=== PATIENT | female | born 1930 | race Caucasian/White ===

== ENCOUNTER → 2016-10-10 | Outpatient (CLI) | payer MEDICARE, MEDICAID ==
[~2016-10-10] MED LIST: ACETAMINOPHEN500 M3 PO; ADULT LOW DOSE81 MG PO; ALPRAZOLAM0.25 M2 PO; ASPIRIN CHILDRE81 MG PO; ATENOLOL25 M1 PO; B-121000 MC1 PO; BENADRYL 25MG C25 MG PO; DAILY MULTIPLE1 T11 PO; DONEPEZIL 10MG10 MG PO; DONEPEZIL HCL10 MG PO; DYAZIDE CAP (M1 EACH PO; FENOFIBRATE MI134 MG PO; FENOFIBRATE160 MG PO; FISH OIL1000 MG PO; GLUCOVANCE 2.51 TAB PO; GLYCERIN SUPPOS1 SU1 RC; HCTZ/TRIAMTEREN1 CAP PO; HYDROXYZINE HCL25 M1 PO; JANUVIA25 MG PO; LORATADINE 10MG10 M1 PO; LOVENOX 3030 MG/0.1 IJ; METFORMIN500 MG PO; MINOCYCLINE 10100 MG PO; MIRALAX(PO17 GM/1 PA PO; MIRTAZAPINE7.5 MG PO; MULTI-VITAMIN1 EACH PO; NATURAL VITAM1000 MG PO; RISPERIDONE0.5 M2 PO; ROBAFEN100 MG/5 M PO; SIMVASTATIN40 MG PO; TAMSULOSIN HCL0.4 MG PO; TRAZODONE50 MG PO; Xanax0.25 MG PO; ZETIA10 MG PO; ZOCOR40 MG PO
--- NOTE | 2016-10-10 09:16 | RADIOLOGY REPORT PS360 ---
HIP LT 2-3V W/PELVIS IF PERFOR HISTORY: FU LT HIP FX ORDERING PHYSICIAN: MAURICIO BADILLO MD PATIENT AGE: 86 years COMPARISON: 08/09/2016 FINDINGS: Status post left hip pain with 3 screws present stabilizing left femoral neck fracture with mild impaction as previously described. Good alignment. Fracture line may be somewhat less apparent consistent with healing. IMPRESSION: Follow-up status post ORIF left femoral neck fracture as described above with good alignment
== END ==
LOC: RAD 08:52
DX: S72.002D Fracture of unspecified part of neck of left femur, subsequent encounter for closed fracture with routine healing (principal)